=== PATIENT | male | born 1980 | race Caucasian/White ===

== ENCOUNTER 2023-08-11 17:09 | Emergency (ER) | payer SELFPAY ==
[2023-08-11] MEDS: Sulfamethoxazole/Trimethoprim 800-160 MG Tab PO ONE (19:53)
== END 2023-08-11 20:16 | disposition home or self-care (01) ==
LOC: MW.ED 17:09
DX: L02.213 Cutaneous abscess of chest wall (principal); L03.313 Cellulitis of chest wall; B95.62 Methicillin resistant Staphylococcus aureus infection as the cause of diseases classified elsewhere
CPT/HCPCS: 87070; 87075; 87205; 99283; A9270

== ENCOUNTER 2024-02-11 17:30 | Emergency (ER) | payer SELFPAY ==
[2024-02-11] MEDS: Sodium Chloride 0.9% 1,000 ML IV ONE (18:08)
[2024-02-11 18:21] LABS: BASOPHILS ABSOLUTE AUTO 0.06 K/uL (0.00-0.20); BASOPHILS PERCENT AUTO 0.8 % (0.0-1.0); EOSINOPHILS ABSOLUTE AUTO 0.06 K/uL (0.00-0.45); EOSINOPHILS PERCENT AUTO 0.8 % (0.0-6.0); HEMATOCRIT 44.7 % (42.0-52.0); HEMOGLOBIN 15.3 g/dL (14.0-18.0); IMMATURE GRAN ABSOLUTE AUTO 0.01 K/uL (0.00-0.05); IMMATURE GRAN PERCENT AUTO 0.1 % (0.0-0.4); LYMPHOCYTES ABSOLUTE AUTO 2.55 K/uL (1.00-4.80); LYMPHOCYTES PERCENT AUTO 32.7 % (24.0-44.0); MEAN CORPUSCULAR HEMOGLOBIN 30.8 pg (28.0-32.0); MEAN CORPUSCULAR HGB CONC 34.2 g/dL (32.0-36.0); MEAN CORPUSCULAR VOLUME 90.1 fL (83.0-99.0); MEAN PLATELET VOLUME 9.4 fL (9.4-12.4); MONOCYTES PERCENT AUTO 10.3 % (0.0-8.0); NEUTROPHILS ABSOLUTE AUTO 4.32 K/uL (1.80-7.70); NEUTROPHILS PERCENT AUTO 55.3 % (41.0-71.0); PLATELET COUNT,PLT 390 K/uL (150-400); RED BLOOD CELL COUNT 4.96 M/uL (4.52-5.90)
[2024-02-11 19:16] LABS: A/G RATIO 1.1 (0.9-1.6); ALBUMIN 4.2 g/dL (3.4-5.0); BILIRUBIN TOTAL 0.9 mg/dL (0.2-1.0); CALCIUM 9.8 mg/dL (8.5-10.1); CARBON DIOXIDE,CO2 25.7 mmol/L (21.0-32.0); CREATININE 0.8 mg/dL (0.8-1.3); EST CRCL DRUG DOSING (CG) 121.67 mL/min; MAGNESIUM 1.9 mg/dL (1.8-2.4); POTASSIUM,K 4.6 mmol/L (3.5-5.1)
== END 2024-02-11 20:05 | disposition home or self-care (01) ==
LOC: MW.ED 17:30
DX: K63.8219 Small intestinal bacterial overgrowth, unspecified (principal); R19.6 Halitosis; R94.5 Abnormal results of liver function studies; Z75.8 Other problems related to medical facilities and other health care; Z88.0 Allergy status to penicillin; Z79.899 Other long term (current) drug therapy
CPT/HCPCS: 36415; 80053; 83735; 84484; 85025; 93005; 96360; 99284; J7030; 93010; 99285